=== PATIENT | female | born 2000 | race African-American/Black ===

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

== ENCOUNTER 2022-05-23 10:40 | Emergency (ER) | payer MEDICAID, SELFPAY ==
[2022-05-23 10:42] VITALS: BP 134/84; PULSE 109; RESP 18; TEMP 37.5; O2SAT 95; BMI 55.6
[2022-05-23 11:52] VITALS: BP 124/72; PULSE 95; RESP 16; O2SAT 98
[2022-05-23 12:14] VITALS: BP 110/61; PULSE 98; RESP 16; O2SAT 99
[2022-05-23 13:12] VITALS: PULSE 111; RESP 15; O2SAT 98
[2022-05-23] MEDS: DiphenhydrAMINE 25 MG Capsule PO (13:38)
[2022-05-23] MEDS: predniSONE 20 MG Tablet 60 MG PO (13:38)
--- NOTE | 2022-05-23 15:28 | EDS_ITS ---
HPI History of Present Illness Chief Complaint: Edema Informant: patient Onset/Context/Timing Onset: Yesterday Context: Gradual Onset Timing: Continuous Quality: Swelling, hives Location: Left face and head Worsened by: Nothing Relieved by: Nothing Narrative Narrative: Patient presents with facial swelling that began yesterday. Patient states she noticed it last night. Patient states it was mainly on the left side of her face. Patient states she took some Benadryl last evening which helped. Patient states she woke up today and it became worse. Patient states it feels like there are hives on the left side of her face and head. Patient denies any difficulty breathing or difficulty swallowing. Patient denies any chest pain or shortness of breath. Patient states nothing makes it better nothing makes it worse. [facility] Medical History Hirsutism Irregular menses Home Medications ascorbic acid (vitamin C) 500 mg capsule 500 mg PO DAILY 01/14/21 [History Last Taken Unknown] cholecalciferol (vitamin D3) 50 mcg (2,000 unit) capsule 125 mcg PO DAILY 01/14/21 [History Last Taken Unknown] loratadine 10 mg tablet (Claritin) 10 mg PO DAILY 01/14/21 [History Last Taken Unknown] omega-3 fatty acids 1,000 mg capsule (Fish Oil Concentrate) 1,000 mg PO DAILY 01/14/21 [History Last Taken Unknown] Allergy/AdvReac Type Severity Reaction Status Date / Time ibuprofen Allergy facial Verified 05/23/22 10:42 swelling Family History Grandmother Breast cancer Surgical History History of oral surgery Social History household members: family number of children: 0 current occupational status: employed and student current occupation: going to [employer] in the fall history of recent travel: No sexually active: No Smoking Status: Never smoker alcohol intake: never substance use type: does not use what type of physical activity do you participate in: none seatbelt use: always do you feel safe at home: Yes additional social history: single ROS ROS ED Constitutional Constitutional ED: Reports chills and subjective; Denies fever(s) Eyes Eyes: Denies blurry vision or change in vision ENT ENT ED: Denies rhinorrhea or sore throat Cardiovascular Cardiovascular: Denies chest pain or palpitations Respiratory/Chest Respiratory/Chest: Denies cough or dyspnea Gastrointestinal Gastrointestinal: Denies nausea or vomiting Genitourinary Genitourinary ED: Denies dysuria or hematuria Musculoskeletal Musculoskeletal: Reports neck pain; Denies back pain Integumentary Reports rash; Denies abscess Neurologic Neurologic: Denies headache(s) or weakness Allergic/Immunologic Allergic/Immunologic ED: Reports mouth swelling and urticaria; Denies tongue swelling EXAM Physical Exam Const Vital Signs: 05/23/22 10:42 05/23/22 11:46 05/23/22 11:52 Temperature 99.5 F H Temperature Source Temporal Pulse Rate 109 H 95 Respiratory Rate 18 16 Respiratory Effort Normal Respiratory Pattern Normal Blood Pressure 134/84 H 124/72 H Blood Pressure Mean 100 89 Pulse Ox 95 98 Oxygen Delivery Method Room Air Room Air 05/23/22 12:14 05/23/22 13:12 Temperature Temperature Source Pulse Rate 98 111 H Respiratory Rate 16 15 Respiratory Effort Respiratory Pattern Blood Pressure 110/61 Blood Pressure Mean 77 Pulse Ox 99 98 Oxygen Delivery Method Room Air Room Air Positive well nourished, well developed and obese General Appearance ED: well developed and NAD Nutritional Appearance: obese HEENT Reports moist mucous membranes HEENT Narrative: Oropharynx is clear. Airway is patent. There is no edema of the oral airway. Eyes PERRL and EOMs intact bilaterally Neck supple and no JVD Resp normal respiratory effort and clear to auscultation bilaterally Cardio regular rate and regular rhythm GI normal to inspection, nondistended, normoactive bowel sounds and non-tender Palpation: soft Neuro oriented x3, CN's II-XII intact bilaterally and no sensory deficits noted Sensorium / Orientation: alert Psych mental status grossly normal Skin Skin Narrative: There is some edema of the left upper and lower lip. There is no definite urticaria noted. There are no vesicles or pustules. There is no discharge or drainage. There is no evidence of any abscess. MDM MDM MDM Narrative Medical decision making narrative: Patient was given a dose of Benadryl and prednisone here. Patient was observed here in the emergency department. The lip swelling improved after this. Patient had no episodes of airway compromise. Patient was able to swallow without difficulty during her entire emergency department stay. Patient is feeling better on reevaluation. Patient was given a prescription for a short course of prednisone. Patient was instructed to follow-up with her primary care physician in 5 to 7 days. Patient was advised she may need allergy testing. Patient understood and was agreeable with the plan. All questions were answered. Discharge Plan Triage Chief Complaint: Edema ED Provider: Davidson Tripp Dx/Rx/DC Orders Clinical Impression: Angioedema, Morbid obesity with BMI of 50.0-59.9, adult Instructions: ED Angioedema Prescriptions: No Action cholecalciferol (vitamin D3) 50 mcg (2,000 unit) capsule 125 mcg PO DAILY ascorbic acid (vitamin C) 500 mg capsule 500 mg PO DAILY loratadine [Claritin] 10 mg tablet 10 mg PO DAILY omega-3 fatty acids [Fish Oil Concentrate] 1,000 mg capsule 1,000 mg PO DAILY Primary Care Provider: Thaddeus Diaz Referrals: Thaddeus Diaz DO [Primary Care Provider] - 5-7 Days Disposition Disposition: Home, Self Care
[2022-05-23 15:47] VITALS: PULSE 78; RESP 15; O2SAT 99
== END 2022-05-23 15:56 | disposition home or self-care (01) ==
PROVIDERS: Emergency Provider Emergency Medicine; PCP Student in an Organized Health Care Education/Training Program; Visit Provider Emergency Medicine
DX: T78.3XXA Angioneurotic edema, initial encounter (principal); E66.01 Morbid (severe) obesity due to excess calories; Z68.43 Body mass index [BMI] 50.0-59.9, adult; X58.XXXA Exposure to other specified factors, initial encounter
CPT/HCPCS: 99282; A4216

== ENCOUNTER 2022-05-24 19:28 | Emergency (ER) | payer MEDICAID, SELFPAY ==
[2022-05-24 19:29] VITALS: BP 154/75; PULSE 120; RESP 18; TEMP 36.4; O2SAT 99; BMI 55.4
[2022-05-24] MEDS: predniSONE 20 MG Tablet 60 MG PO (20:13)
[2022-05-24] MEDS: 0.9% Normal Saline 1,000 ML 1000 ML IV (20:19)
[2022-05-24 20:20] VITALS: BP 130/115; BP 134/68; BP 136/78; PULSE 111; PULSE 115; PULSE 125
[2022-05-24 20:44] LABS: Absolute Lymphocyte Count 1.07 X10^3/uL (0.83-4.51); Absolute Neutrophil Count 3.5 X10^3/uL (2.0-7.7); Basophil# 0.03 X10^3/uL; Basophil% 0.6 % (0-1); Hematocrit 37.4 % (37-47); Hemoglobin 11.8 g/dL (12.0-15.0); Lymphocyte # 1.07 X10^3/ul (0.83-4.51); Lymphocyte % 20.8 % (19-41); Mean Corp Hgb Conc 31.6 g/dL (32-36); Mean Corpuscular Hgb 23.9 pg (27.0-32.0); Mean Corpuscular Volume 75.7 fL (81-99); Mean Platelet Vol. 9.1 fl (6.2-12.0); Monocyte% 7.8 % (0-10); NRBC Flagged by Analyzer 0 % (0-5); Neutrophil % 68.1 % (47-70); Platelet Count 319 K/mm3 (150-450); RBC Distribution Width CV 14.8 % (11.6-14.6); RBC Distribution Width SD 40.2 fl (35.1-43.9); Red Blood Count 4.94 M/mm3 (4.2-5.4); White Blood Count 5.1 K/mm3 (4.4-11.0)
[2022-05-24 20:53] LABS: ALB/GLOB Ratio 0.7 RATIO (0.9-2.4); AST(SGOT) 20 U/L (15-37); Alanine Aminotransfer ALT/SGPT 20 U/L (13-56); Albumin, Serum 3.1 g/dL (3.2-5.0); Alkaline Phosphatase 79 U/L (45-117); Anion Gap 9 (5-15); BUN 10 mg/dL (7-18); BUN/Creat Ratio 10.3 RATIO (10-20); Calcium,Total 8.6 mg/dL (8.5-10.1); Chloride 105 mmol/L (98-107); Creatinine, Serum 0.97 mg/dL (0.55-1.02); EST Glomerular Filtration Rate 78 mL/min (>60); Est Glom Filt Rate - Afr Amer 95 mL/min (>60); Estimated Creatinine Clearance 70.39 ml/min; Globulin 4.7 g/dL (2.2-4.2); Glucose 109 mg/dL (74-106); Potassium 3.8 mmol/L (3.5-5.1); Protein, Total 7.8 g/dL (6.4-8.2); Sodium Level 136 mmol/L (136-145)
--- NOTE | 2022-05-24 22:11 | EDS_ITS ---
HPI History of Present Illness Chief Complaint: Rash Informant: patient Onset/Context/Timing Onset: Today Context: Gradual Onset Timing: Waxes and wanes Quality: Pounding Location: Frontal Worsened by: Standing Relieved by: Nothing Narrative Narrative: Patient presents with headache and fever that began today. Patient was seen here yesterday for angioedema. Patient was given a dose of prednisone for this. Patient states that today he she has been having a frontal headache. Patient states the headache is over where the hives were yesterday. Patient states it has been waxing and waning. Patient states it is worse with standing. Patient states the pain radiates into the right side of her neck. Patient admits to a fever of 102 at home. Patient also admits to some subjective chills. Patient also admits to some rhinorrhea. [facility] Medical History Hirsutism Irregular menses Home Medications ascorbic acid (vitamin C) 500 mg capsule 500 mg PO DAILY 01/14/21 [History Last Taken Unknown] cholecalciferol (vitamin D3) 50 mcg (2,000 unit) capsule 125 mcg PO DAILY 01/14/21 [History Last Taken Unknown] loratadine 10 mg tablet (Claritin) 10 mg PO DAILY 01/14/21 [History Last Taken Unknown] omega-3 fatty acids 1,000 mg capsule (Fish Oil Concentrate) 1,000 mg PO DAILY 01/14/21 [History Last Taken Unknown] prednisone 20 mg tablet 60 mg PO DAILY #9 TABLETS 05/24/22 [Rx Last Taken Unknown] Allergy/AdvReac Type Severity Reaction Status Date / Time ibuprofen Allergy facial Verified 05/24/22 19:29 swelling Family History Grandmother Breast cancer Surgical History History of oral surgery Social History household members: family number of children: 0 current occupational status: employed and student current occupation: going to [employer] in the fall history of recent travel: No sexually active: No Smoking Status: Never smoker alcohol intake: never substance use type: does not use what type of physical activity do you participate in: none seatbelt use: always do you feel safe at home: Yes additional social history: single ROS ROS ED Constitutional Constitutional ED: Reports chills and fever(s) Eyes Eyes: Denies blurry vision or change in vision ENT ENT ED: Reports rhinorrhea; Denies sore throat Cardiovascular Cardiovascular: Denies chest pain or palpitations Respiratory/Chest Respiratory/Chest: Reports cough; Denies dyspnea Gastrointestinal Gastrointestinal: Denies nausea or vomiting Genitourinary Genitourinary ED: Denies dysuria or hematuria Musculoskeletal Musculoskeletal: Reports neck pain; Denies back pain Integumentary Reports rash; Denies abscess Neurologic Neurologic: Denies headache(s) or weakness Allergic/Immunologic Allergic/Immunologic ED: Reports urticaria; Denies mouth swelling EXAM Physical Exam Const Vital Signs: 05/24/22 19:29 05/24/22 20:20 Temperature 97.6 F L Temperature Source Temporal Pulse Rate 120 H Pulse Rate [Lying] 111 H Pulse Rate [Sitting (for 1 minute prior to obtaining)] 115 H Pulse Rate [Standing (for 1 minute prior to obtaining)] 125 H Respiratory Rate 18 Blood Pressure 154/75 H Blood Pressure [Lying] 136/78 H Blood Pressure [Sitting (for 1 minute prior to obtaining)] 134/68 H Blood Pressure [Standing (for 1 minute prior to obtaining)] 130/115 H Blood Pressure Mean 101 Blood Pressure Mean [Lying] 97 Blood Pressure Mean [Sitting (for 1 minute prior to obtaining)] 90 Blood Pressure Mean [Standing (for 1 minute prior to obtaining)] 120 Pulse Ox 99 Oxygen Delivery Method Room Air Positive well nourished, well developed and obese General Appearance ED: well developed and NAD Nutritional Appearance: obese HEENT Reports moist mucous membranes Neck supple and no JVD Resp normal respiratory effort and clear to auscultation bilaterally Cardio regular rate and regular rhythm GI normal to inspection, nondistended, normoactive bowel sounds and non-tender Palpation: soft Extremity normal to inspection Neuro oriented x3, CN's II-XII intact bilaterally and no sensory deficits noted Sensorium / Orientation: alert Motor Exam: strength 5/5 throughout Psych mental status grossly normal Skin Skin Narrative: There is an area of urticaria noted over the right cheek. There are no vesicles or pustules. There are no petechia noted. There is no involvement of the mucous membranes. MDM MDM MDM Narrative Medical decision making narrative: Patient was given IV fluids. Orthostatic vital signs were obtained and were within normal limits. CBC shows a mild anemia with a hemoglobin of 11.8. Comprehensive metabolic profile was within normal limits. Patient is feeling better on reevaluation. Patient was given a dose of prednisone here. Patient was given a prescription for prednisone to take for the next 3 days. Patient was instructed to drink plenty of fluids. Patient was instructed to follow-up with her primary care physician in 5 to 7 days. Patient understood and was agreeable with the plan. All questions were answered. Lab Data Attestation: I reviewed the patient's lab results. Labs: Laboratory Results - last 24 hr 05/24/22 05/24/22 20:17 20:17 WBC 5.1 RBC 4.94 Hgb 11.8 L Hct 37.4 MCV 75.7 L MCH 23.9 L MCHC 31.6 L RDW Std Deviation 40.2 RDW Coeff of Paul 14.8 H Plt Count 319 MPV 9.1 Immature Gran % (Auto) 2.700 H Neut % (Auto) 68.1 Lymph % (Auto) 20.8 [place] % (Auto) 7.8 Eos % (Auto) 0.0 Baso % (Auto) 0.6 Absolute Neuts (auto) 3.5 Absolute Lymphs (auto) 1.07 Nucleated RBC % 0 Sodium 136 Potassium 3.8 Chloride 105 Carbon Dioxide 22.0 Anion Gap 9 BUN 10 Creatinine 0.97 Estim Creat Clear Calc 70.39 Est GFR (MDRD) Af Amer 95 Est GFR (MDRD) Non-Af 78 BUN/Creatinine Ratio 10.3 Glucose 109 H Calcium 8.6 Total Bilirubin 0.10 L AST 20 ALT 20 Alkaline Phosphatase 79 Total Protein 7.8 Albumin 3.1 L Globulin 4.7 H Albumin/Globulin Ratio 0.7 L Discharge Plan Triage Chief Complaint: Rash ED Provider: Davidson Tripp Dx/Rx/DC Orders Clinical Impression: Headache, Viral illness Instructions: ED Pain, Acute, Uncertain Cause, ED Viral Syndrome (Adult) Prescriptions: New prednisone 20 mg tablet 60 mg PO DAILY Qty: 9 0RF No Action cholecalciferol (vitamin D3) 50 mcg (2,000 unit) capsule 125 mcg PO DAILY ascorbic acid (vitamin C) 500 mg capsule 500 mg PO DAILY loratadine [Claritin] 10 mg tablet 10 mg PO DAILY omega-3 fatty acids [Fish Oil Concentrate] 1,000 mg capsule 1,000 mg PO DAILY Primary Care Provider: Thaddeus Diaz Referrals: Thaddeus Diaz DO [Primary Care Provider] - 5-7 Days Disposition Disposition: Home, Self Care
[2022-05-24 22:32] VITALS: BP 125/49; PULSE 87; RESP 16; O2SAT 97
== END 2022-05-24 22:35 | disposition home or self-care (01) ==
PROVIDERS: Emergency Provider Emergency Medicine; PCP Student in an Organized Health Care Education/Training Program; Visit Provider Emergency Medicine
DX: R51.9 Headache, unspecified (principal); B34.9 Viral infection, unspecified; E66.9 Obesity, unspecified
CPT/HCPCS: 80053; 85025; 96360; 99284; J7030; A4216

== ENCOUNTER 2025-05-01 10:15 | Emergency (ER) | payer BC, SELFPAY ==
[2025-05-01 10:16] VITALS: BP 141/87; PULSE 83; RESP 14; TEMP 35.9; O2SAT 98; BMI 59.8
--- NOTE | 2025-05-01 10:52 | EDS_ITS ---
HPI History of Present Illness Chief Complaint: Other, Pain/Inj Narrative Narrative: 24-year-old female past medical history of anemia currently undergoing iron infusion presents with right antecubital arm pain after an infusion of iron this morning. She states this is her third dose/infusion, but they have gone into the road they that she feels is the same vein the 2 previous times as well. She thinks that there may have been slight infiltration of the infusion towards the end of her infusion. She states that they wrapped up her arm and she went home. She started having increasing pain. She denies any fever or redness or bleeding to the area. She does not take blood thinners. She states she called her primary care provider's office who told her to come to the emergency department because of the pain in her right arm. She denies other exacerbating or alleviating factors. [facility] Medical History Physical exam, pre-employment Hirsutism Irregular menses Home Medications ?Medication ?Instructions ?Recorded ?Last Taken ?Type ascorbic acid (vitamin C) 500 mg 500 mg PO DAILY 01/14 Unknown History capsule cholecalciferol (vitamin D3) 50 125 mcg PO DAILY 01/14 Unknown History mcg (2,000 unit) capsule loratadine 10 mg tablet (Claritin) 10 mg PO DAILY 12/23 12/12 Unknown History omega-3 fatty acids 1,000 mg 1,000 mg PO DAILY 1 Unknown History capsule (Fish Oil Concentrate) prednisone 20 mg tablet 60 mg (3 x 20 mg) PO DAILY # 9 05/24/22 Unknown Rx TABLETS Allergy/AdvReac Type Severity Reaction Status Date / Time ibuprofen Allergy facial Verified 05/24/22 19:29 swelling Family History Grandmother Breast cancer Surgical History History of oral surgery Social History household members: family number of children: 0 current occupational status: employed and student current occupation: going to [employer] in the fall history of recent travel: No sexually active: No Smoking Status: Never smoker alcohol intake: never substance use type: does not use what type of physical activity do you participate in: none seatbelt use: always do you feel safe at home: Yes additional social history: single ROS ROS ED ROS Narrative Review of systems positive for right arm pain, right antecubital fossa where she had IV placed and infusion with questionable infiltration of iron. No exacerbating or alleviating factors. No chest pain or shortness of breath. EXAM Physical Exam Narrative Exam Narrative: Afebrile. Vital signs noted. Nontoxic-appearing. Cardiovascular examination regular rate and rhythm. Lungs clear to auscultation bilaterally. Inspection of the right arm mainly in the antecubital fossa does show slight firmness of the vein. No discoloration. No erythema. Motion of the right elbow, neurovascular intact distally. No crepitance. Const Vital Signs: 05/01/25 10:16 Temperature 96.7 F L Temperature Source Temporal Pulse Rate 83 Respiratory Rate 14 Blood Pressure 141/87 H Blood Pressure Mean 105 Pulse Ox 98 Oxygen Delivery Method Room Air MDM MDM MDM Narrative Medical decision making narrative: The differential diagnosis includes but not limited to superficial thrombophlebitis versus IV infiltration versus hematoma. I do not feel she requires laboratory testing or ultrasound. Additionally, although her iron infusion may have infiltrated slightly, she will be treated as such hide I do not feel that she requires any extra care. She was told to apply warm compresses. She states she has an allergy to ibuprofen so does not want to take aspirin. I do not feel she needs antibiotics. Additionally, I offered to have her right upper extremity wrapped, but she declined. She was reassured. She was told that during her next iron infusion that she should have them use the other arm until her symptoms resolve. I feel she can be discharged to follow- up. Return instructions to the emergency department were reviewed. She will take [id number] analgesics. Disposition is discharged home in stable condition. History & Record Review Discussion w/independent historian: Patient Additional record(s) reviewed:: Prior ED visit (Noncontributory to current chief complaint) Discharge Plan Triage Chief Complaint: Other, Pain/Inj ED Provider: Bucky Pina Dx/Rx/DC Orders Clinical Impression: IV infiltration, Superficial thrombophlebitis Instructions: IV Infiltration Dc, ED Thrombophlebitis, Superficial Prescriptions: No Action cholecalciferol (vitamin D3) 50 mcg (2,000 unit) capsule 125 mcg PO DAILY ascorbic acid (vitamin C) 500 mg capsule 500 mg PO DAILY loratadine [Claritin] 10 mg tablet 10 mg PO DAILY omega-3 fatty acids [Fish Oil Concentrate] 1,000 mg capsule 1,000 mg PO DAILY prednisone 20 mg tablet 60 mg PO DAILY Qty: 9 0RF Primary Care Provider: Thaddeus Diaz Referrals: Thaddeus Diaz, [Primary Care Provider] - 1 Week if not improving Activity Restrictions/Additional Instructions: Return to the emergency department with redness to the area, increased pain, new or worsening symptoms. Print Language: Divehi Disposition Disposition: Home, Self Care
== END 2025-05-01 11:36 | disposition home or self-care (01) ==
LOC: ED 10:55
PROVIDERS: Emergency Provider Emergency Medicine; PCP Student in an Organized Health Care Education/Training Program; Visit Provider Emergency Medicine
DX: T80.1XXA Vascular complications following infusion, transfusion and therapeutic injection, initial encounter (principal); X58.XXXA Exposure to other specified factors, initial encounter; I80.8 Phlebitis and thrombophlebitis of other sites
CPT/HCPCS: 99282; A4216